=== PATIENT | female | born 1990 | race Caucasian/White ===

== ENCOUNTER 2021-07-05 07:28 | Emergency (ER) | payer MEDICAID ==
[~2021-07-05] VITALS: Ht 172.7 cm; Wt 79.5 kg
[2021-07-05 07:43] VITALS: TEMP 98.3
[2021-07-05 09:00] VITALS: BP 120/63; PULSE 88
[2021-07-08] MEDS ORDERED: AMOXICILLIN 8751 TAB PO (08:22)
[2021-07-08] MEDS ORDERED: ZOLOFT 50MG50 MG PO (08:23)
== END 2021-07-05 09:05 | disposition home or self-care (01) ==
LOC: COL.ER 07:28
DX: S71.152A Open bite, left thigh, initial encounter (principal); Z29.14 Encounter for prophylactic rabies immune globulin; W54.0XXA Bitten by dog, initial encounter

== ENCOUNTER 2021-07-19 15:00 | Outpatient (RCR) | payer MEDICAID ==
[2021-07-08 08:12] VITALS: BP 120/76; PULSE 79; TEMP 98.1
[2021-07-12 15:35] VITALS: BP 133/84; PULSE 76; TEMP 99.1
[~2021-07-19] VITALS: Ht 172.7 cm; Wt 79.5 kg
[~2021-07-19 15:00] MED LIST: AMOXICILLIN 8751 TAB PO; ZOLOFT 50MG50 MG PO
[2021-07-19 15:22] VITALS: BP 129/85; PULSE 70; TEMP 99
== END 2021-07-19 17:10 | disposition home or self-care (01) ==
LOC: EUO 15:00
DX: Z23 Encounter for immunization (principal); Z20.3 Contact with and (suspected) exposure to rabies; T14.8XXA Other injury of unspecified body region, initial encounter; W54.0XXA Bitten by dog, initial encounter